=== PATIENT | male | born 1980 | race American Indian/Alaskan Native ===

== ENCOUNTER 2017-09-22 10:47 | Emergency (ER) | payer BC, OTHER ==
[2017-09-22] MEDS: ACETAMINOPHEN 325 MG TAB PO (11:20)
[2017-09-22] MEDS: ONDANSETRON (ODT) 4 MG TAB ODT (15:13)
[2017-09-22] MEDS: HYDROCODONE/APAP (5/325) TAB PO (15:13)
== END 2017-09-22 16:43 | disposition home or self-care (01) ==
LOC: FTE 10:47
DX: S09.90XA Unspecified injury of head, initial encounter (principal); R51 Headache; W01.198A Fall on same level from slipping, tripping and stumbling with subsequent striking against other object, initial encounter; Y92.9 Unspecified place or not applicable
CPT/HCPCS: 70450; 99284-25